=== PATIENT | male | born 1955 | race African-American/Black ===

== ENCOUNTER 2020-03-28 23:50 | Emergency (ER) | payer MEDICARE ==
[2020-03-29] MEDS ORDERED: methylPREDNISolone Sod Succ/PF 125 MG/2 ML VIAL ONE (00:11)
[2020-03-29] MEDS ORDERED: Magnesium 2 GM/50 ML BAG (IN WATER) ONE (00:11)
[2020-03-29] MEDS ORDERED: Albuterol Sulfate 2.5 mg/0.5 ml Neb ONE (03:18)
--- NOTE | 2020-03-29 07:56 | RAD ---
EXAM: XR Chest 1 View Portable PROVIDED CLINICAL HISTORY: Shortness of breath COMPARISON: None FINDINGS: Cardiac and mediastinal silhouette is within normal limits. Elevation of the right hemidiaphragm, mil d with blunting of the right costophrenic angle. No focal consolidation or left pleural fluid evident. No evidence for pneumothorax. Healed fracture deformities of right lateral ribs. IMPRESSION: Mild elevation of the right hemidiaphragm and blunting of the right costophrenic angle, chronicity un certain. Pleural fluid and/or pleural scarring is possible.
== END 2020-03-29 04:20 | disposition home or self-care (01) ==
LOC: ERS 23:50
DX: J44.1 Chronic obstructive pulmonary disease with (acute) exacerbation (principal); F41.9 Anxiety disorder, unspecified; F17.210 Nicotine dependence, cigarettes, uncomplicated
CPT/HCPCS: 71045; 96365; 96374; J2930; J3475; J7611; J7620

== ENCOUNTER 2020-06-06 10:43 | Observation (INO) | payer MEDICARE, OTHER ==
[2020-06-06 10:57] LABS: ALV-art Gradient 553.425 (0-20); Actual Bicarbonate (HCO3a) 26.7 mEq/L (22-28); Analyzer IN Cardio ER; Base Excess (BEa) 2.2 mEq/L (-2.0 to +3.0); CO2 Tension 41.1 mmHg (35.0-45.0); Calcium, Ionized (arterial) 1.18 mmol/L (1.12-1.30); Carboxyhemoglobin (COHb) 2.1 gm% (0.0-3.0); Hemoglobin (Hb) 12.7 g/dL (14.0-18.0); O2 Tension (PaO2), arterial 108.2 mmHg (> 80.0); Potassium - ABG Lab 4.04 mmol/L (3.70-5.30); Puncture Site LRA; pH, Arterial 7.43 (7.35-7.45)
[2020-06-06] MEDS ORDERED: Magnesium 2 GM/50 ML BAG (IN WATER) ONE (11:16)
[2020-06-06] MEDS ORDERED: methylPREDNISolone Sod Succ/PF 125 MG/2 ML VIAL ONE (11:16)
[2020-06-06 11:21] LABS: #Eosinphils 0.1 thou/uL (0.0-0.7); #Lymphocytes 1.2 thou/uL (1.20-3.40); #Monocytes 0.8 thou/uL (0.11-0.59); #Neutrophils 7.6 thou/uL (1.40-6.50); %Basophils 0.1 % (0.0-1.0); %Eosinophils 0.9 % (0.0-10.0); %Lymphocytes 12.7 % (21.0-51.0); %Monocytes 8.3 % (0.0-10.0); Hemoglobin 12.1 g/dL (14.0-18.0); Mean Corpuscular HGB CONC 33.4 g/dL (32.0-36.0); Mean Corpuscular Hemoglobin 28.6 pg (27.0-31.0); Mean Corpuscular Volume 85.8 fL (78.0-98.0); Mean Platelet Volume 7.6 fL (7.4-10.4); Platelet Count 224 thou/uL (130-400); RBC Distribution Width 14.7 % (11.5-14.5); Red Blood Cell (RBC) Count 4.23 mill/uL (4.70-6.10); White Blood Cell (WBC) Count 9.7 thou/uL (4.8-10.8)
--- NOTE | 2020-06-06 11:40 | RAD ---
PORTABLE CHEST 1 VIEW: DATE: 06/06/2020. TIME: 11:11 AM. HISTORY: COVID positive, difficulty breathing. COMPARISON: 04/25/2020. FINDINGS: The heart size is normal. The lungs are expanded with new bilateral patchy infiltrates. No pneumoth oraces or large effusions are seen. IMPRESSION: Findings are suspicious for COVID-19 pneumonia. POS: OFF
[2020-06-06 11:51] LABS: ALT (SGPT) 22 U/L (8-55); AST (SGOT) 20 U/L (5-34); Albumin 2.8 g/dL (3.4-4.8); Alkaline Phosphatase 91 U/L (40-110); Anion Gap 12 mmol/L (10-20); BUN (Urea Nitrogen) 6 mg/dL (8.4-25.7); Bilirubin, Total 0.7 mg/dL (0.2-1.2); Calc. Creatinine Clearance 0 mL/min (70-130); Calcium 8.2 mg/dL (7.8-10.44); Carbon Dioxide 27 mmol/L (23-31); Chloride 103 mmol/L (98-107); Estimated GFR-MDRD Greater than 90; Globulin 3.2 g/dL (2.4-3.5); Glucose 86 mg/dL (80-115); Potassium 4.2 mmol/L (3.5-5.1); Sodium 138 mmol/L (136-145)
[2020-06-06] MEDS ORDERED: Albuterol 200 PUFF (6.7GM INHALER) ONE (11:57)
[2020-06-06] MEDS ORDERED: Enoxaparin Sodium 60 MG/0.6 ML SYRINGE ONE (12:44)
[2020-06-06] MEDS ORDERED: Aspirin Chewable 81 MG TAB ONE (12:44)
[2020-06-06] MEDS ORDERED: Azithromycin 500 MG VIAL ONE (13:27)
[2020-06-06] MEDS ORDERED: cefTRIAXone\\ROCEPHIN 2 GM VIAL ONE (13:27)
[2020-06-06] MEDS ORDERED: cefTRIAXone\\ROCEPHIN 1 GM VIAL ONE (13:46)
[2020-06-06] MEDS ORDERED: Calcium Carbonate 500 MG ChewTAB PO PRN (14:10)
[2020-06-06] MEDS ORDERED: Guaifenesin DM 100-10/5 ML UDCUP PO PRN (14:10)
[2020-06-06] MEDS ORDERED: Acetaminophen 325 MG TAB PO PRN (14:10)
[2020-06-06] MEDS ORDERED: Ondansetron PF 4 MG/2 ML Vial IVP PRN (14:10)
[2020-06-06] MEDS ORDERED: Bisacodyl 10 MG SUPP PR PRN (14:10)
[2020-06-06] MEDS ORDERED: Senokot S 8.6-50 MG TAB PO PRN (14:10)
[2020-06-06 14:45] LABS: Troponin I 0.413 ng/mL (< 0.028)
--- NOTE | 2020-06-06 15:23 | HP ---
REASON FOR ADMISSION: COVID-19 pneumonia, acute respiratory failure with hypoxia. HISTORY OF PRESENTING ILLNESS: The patient gives history of having increasing shortness of breath this morning. He says he was diagnosed with COVID-19 pneumonia on May 27. He had gone for a routine cardiac catheterization with his primary animal sticker in [place] in [facility]. He does not recall the name of the hospital. As part of admission protocol, he had a COVID screen done, which came back positive. His cardiac catheterization was normal as far as he can remember and no stents were put in. The patient required nearly 3 L of oxygen by nasal cannula at the time of discharge. He says he has been in quarantine, but he had to come for his brother's , who a month back. This morning, he had gone out for a walk without his oxygen and his sister locked him out. He was off oxygen for nearly 2 hours and got severely short of breath. EMS was summoned and the patient was brought here. No complaints of chest pain or palpitation. He says he normally ambulates by himself. He lives in [facility] with his and has a primary care physician there. PAST MEDICAL AND SURGICAL HISTORY: COPD, tobacco abuse, hypertension. No previous surgical history. He says no major surgery on him. CURRENT MEDICATION: Metoprolol 25 mg twice daily. ALLERGIES: ALLERGIC TO PENICILLIN. PERSONAL HISTORY: The patient has cut down to 1 to 2 cigarettes from last 10 days, prior to which was smoking 2 packs a day. He apparently admitted to using cocaine to the ER physician, but has denied the same to me. He says he does not abuse alcohol. He lives with his in [facility]. FAMILY HISTORY: Both parents in their 50s. They had heart disease as far as he knows. CODE STATUS: Full. Power of mergers and acquisitions attorney is his . REVIEW OF SYSTEMS: CONSTITUTIONAL: Negative for weight loss or gain, ability to conduct usual activities. SKIN: Negative for rash, itching. EYES: Negative for double vision, pain. ENT/MOUTH: Negative for nose bleeding, neck stiffness, pain, tenderness. CARDIOVASCULAR: Negative for palpitations, dyspnea on exertion, orthopnea. RESPIRATORY: Negative for shortness of breath, wheezing, cough, hemoptysis, fever or night sweats. GASTROINTESTINAL: Negative for poor appetite, abdominal pain, heartburn, nausea, vomiting, constipation, or diarrhea. GENITOURINARY: Negative for urgency, frequency, dysuria, nocturia. MUSCULOSKELETAL: Negative for pain, swelling. NEUROLOGIC/PSYCHIATRIC: Negative for anxiety, depression. ALLERGY/IMMUNOLOGIC: Negative for skin rash, bleeding tendency. PHYSICAL EXAMINATION: GENERAL: The patient is a 65-year-old male who is currently not in any acute distress. VITAL SIGNS: Blood pressure 132/90, pulse 110 per minute, respiratory rate 18 per minute, temperature 98.2 degrees Fahrenheit, and saturating 96% on 3 L nasal cannula. NECK: Supple. No elevated JVD. HEENT: Eyes; extraocular muscles intact. Pupils reacting to light. Oral cavity, mucous membranes are dry. No exudates or congestion. CARDIOVASCULAR: S1, S2 heard. Tachycardic. No murmur. RESPIRATORY: Air entry 1+ bilateral. Scattered rales plus bilateral. Rhonchi plus bilateral. No wheezes. ABDOMEN: Soft. Bowel sounds heard. No tenderness, rigidity, or guarding. EXTREMITIES: No peripheral edema or calf tenderness. VASCULAR SYSTEM: Peripheral pulses 1+ bilateral. No ischemic ulcerations or gangrene. CENTRAL NERVOUS SYSTEM: No gross focal motor deficits noted. The patient is alert, awake, and oriented well. PSYCHIATRIC: The patient's mood is a bit anxious. Otherwise, no hallucinations or delusions. LABORATORY DATA: Chest x-ray done shows bilateral patchy infiltrates suspicious for COVID pneumonia. Troponin I 0.35. BUN 6, creatinine 0.69. LFTs are within normal limits. Albumin is 2.8. Blood gas done shows a pH of 7.43, pCO2 41, pO2 108. White count of 9, H and H 12 and 36, platelet count 224 with 78% neutrophils, MCV is 85. EKG done shows sinus tach at 117 beats per minute. There are signs of LVH seen. CLINICAL IMPRESSION AND PLAN: The patient will be under observation on telemetry for worsening shortness of breath with history of COVID-19 pneumonia from last 7 days. This morning, he was locked out of his house with no oxygen for nearly 2 hours, which led to current acute respiratory failure with hypoxic crisis. The patient has severe patchy infiltrates on both sites of his lungs with COVID-19 pneumonia. He also has indeterminate troponin. We will obtain echo with 2D Doppler to see if he has any underlying pericardial effusion in addition to possible myocarditis with COVID-19 pneumonia. We will empirically place him on doxycycline, dexamethasone 6 mg IV daily, DuoNeb q.6 hourly, aspirin 81 mg daily. We will continue his home dose of Lopressor and we will also add budesonide inhaler twice daily. We will add Lovenox full dose q.12 hourly in view of bilateral infiltrates with likely severe COVID-19 pneumonia and being on nearly 3 L of oxygen by nasal cannula. We will consult Dr. Mcwilliams for his opinion. The patient has had a CT angio ordered from the ER and we will follow up on the results of the same. Job ID: [id number]
[2020-06-06] MEDS ORDERED: Nicotine 21 MG PATCH TD SCH (17:00)
[2020-06-06] MEDS: HYDROcodone/Acetaminophen 5/325 mg Tablet PO PRN ×2 (17:03→23:31)
[2020-06-06 18:02] LABS: Critical Call Chem Troponin I RESULT DECREASING; Troponin I 0.376 ng/mL (< 0.028)
[2020-06-06] MEDS: Famotidine 20 MG TAB PO SCH (21:45)
[2020-06-06] MEDS: Albuterol 200 PUFF (6.7GM INHALER) INH SCH (21:45)
[2020-06-06] MEDS: Enoxaparin Sodium 60 MG/0.6 ML SYRINGE SC SCH (21:45)
[2020-06-06] MEDS: Doxycycline 100 MG CAP PO SCH (21:45)
[2020-06-06] MEDS: Metoprolol Tartrate 25 MG TAB PO SCH (21:45)
[2020-06-07] MEDS: Albuterol 200 PUFF (6.7GM INHALER) INH SCH ×3 (02:18→13:14)
[2020-06-07 05:09] LABS: #Lymphocytes 1.3 thou/uL (1.20-3.40); #Monocytes 0.5 thou/uL (0.11-0.59); %Basophils 0.4 % (0.0-1.0); %Eosinophils 0.3 % (0.0-10.0); %Lymphocytes 14.6 % (21.0-51.0); %Monocytes 5.9 % (0.0-10.0); %Neutrophils 78.8 % (42.0-75.0); Hemoglobin 11.4 g/dL (14.0-18.0); Mean Corpuscular HGB CONC 32.7 g/dL (32.0-36.0); Mean Corpuscular Hemoglobin 28.5 pg (27.0-31.0); Mean Corpuscular Volume 87.2 fL (78.0-98.0); Platelet Count 223 thou/uL (130-400); RBC Distribution Width 14.8 % (11.5-14.5); Red Blood Cell (RBC) Count 4.01 mill/uL (4.70-6.10); White Blood Cell (WBC) Count 8.8 thou/uL (4.8-10.8)
[2020-06-07 05:28] LABS: ALT (SGPT) 20 U/L (8-55); AST (SGOT) 18 U/L (5-34); Albumin 2.7 g/dL (3.4-4.8); Alkaline Phosphatase 87 U/L (40-110); Anion Gap 12 mmol/L (10-20); BUN (Urea Nitrogen) 12 mg/dL (8.4-25.7); Bilirubin, Total 0.3 mg/dL (0.2-1.2); Calc. Creatinine Clearance 72 mL/min (70-130); Calcium 8.3 mg/dL (7.8-10.44); Carbon Dioxide 25 mmol/L (23-31); Chloride 103 mmol/L (98-107); Estimated GFR-MDRD Greater than 90; Globulin 3.6 g/dL (2.4-3.5); Glucose 125 mg/dL (80-115); Potassium 4.6 mmol/L (3.5-5.1); Protein, Total 6.3 g/dL (5.8-8.1); Sodium 135 mmol/L (136-145)
[2020-06-07] MEDS: Doxycycline 100 MG CAP PO SCH (08:50)
[2020-06-07] MEDS: Metoprolol Tartrate 25 MG TAB PO SCH (08:50)
[2020-06-07] MEDS: Enoxaparin Sodium 60 MG/0.6 ML SYRINGE SC SCH (08:51)
[2020-06-07] MEDS: Famotidine 20 MG TAB PO SCH (08:51)
[2020-06-07] MEDS ORDERED: Dexamethasone 4 mg/ml Vial SLOW IVP SCH (09:00)
[2020-06-07] MEDS ORDERED: Aspirin Chewable 81 MG TAB PO SCH (09:00)
[2020-06-07] MEDS: HYDROcodone/Acetaminophen 5/325 mg Tablet PO PRN (09:16)
[2020-06-07 11:20] LABS: Hemoglobin 11.6 g/dL (14.0-18.0); Platelet Count 231 thou/uL (130-400)
--- NOTE | 2020-06-07 11:36 | PDOC.HOSPP ---
- Subjective Encounter Date: 06/07/20 Encounter Time: 11:00 Subjective: has sob, weakness+ is comfortable of nasal canula - Objective Vital Signs & Weight: Vital Signs (12 hours) Temp Pulse Resp BP Pulse Ox 06/07/20 09:03 98.3 F 103 H 24 H 134/86 92 L 06/07/20 04:50 97.8 F 96 24 H 131/85 98 06/07/20 01:54 96 06/06/20 23:58 96.3 F L 70 24 H 116/80 98 Weight Weight 128 lb 14.4 oz I&O: 06/06/20 06/07/20 06/08/20 06:59 06:59 06:59 Intake Total 600 Output Total 200 Balance 400 Result Diagrams: 06/07/20 10:48 06/07/20 04:50 Hospitalist ROS - Medication Medications: Active Medications Generic Name Dose Route Start Last Admin Trade Name Freq PRN Reason Stop Dose Admin Hydrocodone Bitart/Acetaminophen 1 tab 06/06/20 14:10 06/07/20 09:16 [place] 5/325 PO 1 tab Q4H PRN Administration Moderate Pain (4-6) Albuterol Sulfate 2 puff 06/06/20 19:00 06/07/20 08:51 Proventil Hfa INH 2 puff [id number] TORRIE Administration Aspirin 81 mg 06/07/20 09:00 06/07/20 08:50 Aspirin Chewable PO 81 mg DAILY TORRIE Administration Dexamethasone 6 mg 06/07/20 09:00 06/07/20 08:51 Decadron SLOW IVP 6 mg DAILY TORRIE Administration Doxycycline Hyclate 100 mg 06/06/20 21:00 06/07/20 08:50 Vibramycin PO 100 mg BID TORRIE Administration Enoxaparin Sodium 60 mg 06/06/20 21:00 06/07/20 08:51 Lovenox SC 60 mg 0900,2100 TORRIE Administration Famotidine 20 mg 06/06/20 21:00 06/07/20 08:51 Pepcid PO 20 mg BID TORRIE Administration Metoprolol Tartrate 25 mg 06/06/20 21:00 06/07/20 08:50 Lopressor PO 25 mg BID TORRIE Administration Nicotine 21 mg 06/06/20 17:00 06/06/20 17:03 Nicoderm Patch TD 21 mg Q24HR TORRIE Administration - Exam General Appearance: awake alert Eye: PERRL, anicteric sclera ENT: no oropharyngeal lesions, moist mucosa Neck: supple, no JVD Heart: RRR, no murmur Respiratory: no wheezes, rales, rhonchi Gastrointestinal: soft, non-tender, non-distended, normal bowel sounds Extremities: no cyanosis, no edema Neurological: cranial nerve grossly intact, no focal deficits Psychiatric: normal affect, A&O x 3 Hosp A/P (1) Pneumonia due to COVID-19 virus Code(s): U07.1 - COVID-19; J12.89 - OTHER VIRAL PNEUMONIA Status: Acute (2) Acute respiratory failure with hypoxia Code(s): J96.01 - ACUTE RESPIRATORY FAILURE WITH HYPOXIA Status: Acute (3) COPD (chronic obstructive pulmonary disease) Status: Chronic Qualifiers: COPD type: chronic bronchitis (4) Tobacco abuse Code(s): Z72.0 - TOBACCO USE Status: Chronic - Plan is on dexamethasone, nasal canula O2, lovenox full dose not sure if they will do an echo in view of his +ve covid status no chest pain or palp await opinion dc plan per advice continue inhaler, lopressor
[2020-06-07 11:43] LABS: Calc. Creatinine Clearance 79 mL/min (70-130); Estimated GFR-MDRD Greater than 90
[2020-06-07 12:40] VITALS: BP 131/80; TEMP 97.7
[2020-06-07 20:28] LABS: SARS-CoV-2 IgG Index 5.77 S/CO (< 1.40)
[2020-06-07 20:31] LABS: SARS-CoV-2 IgG Ab Reactive (NonReactive)
--- NOTE | 2020-06-08 06:12 | CON ---
DATE OF CONSULTATION: 06/07/2020 REASON: History of COVID pneumonia, superimposed on COPD with worsening dyspnea. HISTORY OF PRESENT ILLNESS: A 65-year-old history of chronic heavy smoking; COPD, on oxygen supplementation at home, who was admitted twice in [place], once in March and then in April for what he recalls are complications related to COVID pneumonia, superimposed on COPD. We do not have yet confirmation of this history, but the records have been requested. He was released in April from the hospital on oxygen supplementation and apparently, he came to visit family here due to I think one of his relatives passing away from an unrelated problem and on the way back, he found himself locked out of the house and did not have his inhalers or his oxygen and had to call EMS and be brought to the emergency room. On arrival, his temperature 98.2 and pulse 120, blood pressure 130/95, and O2 saturations were 96 after oxygen supplementation 3 L. He did not appear in distress. He had diffuse wheezing right and left side. Other elements of the examination were not particularly remarkable. Right now, he is awake, in no distress at all and is able to speak in full sentences and good recollection, orientation. He denies any headaches. No sore throat, odynophagia, or dysphagia. No chest pain. No back pain. A little bit of sputum production. He is slowly getting back his smell and taste in food. Abdomen is soft, not distended or tender. No ascites. No bladder distention. Voiding without difficulty. No joint symptoms. No neurological symptoms. PAST MEDICAL HISTORY: COPD, chronic smoking, hypertension, and reported recent episode of COVID diagnosed in [place]. SOCIAL HISTORY: Chronic smoker. Lives in [place]. Uses cocaine intermittently, mostly crack. Smokes half a pack a day. ALLERGIES: PENICILLIN WITH RASH, NOT VERY WELL DESCRIBED HISTORY OF ALLERGY. MEDICATIONS: At the moment: 1. Inhalers. 2. Aspirin. 3. Dulcolax. 4. Tums. 5. Decadron. 6. Vibramycin. 7. Lovenox. 8. Robitussin. PHYSICAL EXAMINATION: VITAL SIGNS: He has been afebrile since admission, blood pressure 130/86, pulse 103, respirations 20 to 24, O2 saturation on 2 to 3 L of nasal cannula is saturating anywhere from 92% to 96%. SKIN: Normal. There is no lymphadenopathy. HEENT: Ocular movements conjugate. Sclerae white. Pupils are equal. Conjunctivae normal. Oral cavity with numerous missing teeth, a lot of gum resorption. Some gingivitis. Oral mucosa normal. NECK: Supple. No jugular venous distention. LUNGS: With diminished breath sounds, but no obvious crackles or wheezing. HEART: S1, S2. Regular rate. No S3 or S4. ABDOMEN: Soft, not distended or tender. No ascites. No bladder distention. No organomegaly. No joint inflammatory activity. EXTREMITIES: Pulses 1+ in dorsalis pedis. Plantar responses are flexor. No edema. NEUROLOGIC: Oriented, follows commands, pleasant, good recollection. LABORATORY DATA: White cell count 9.7 then 8.8, hemoglobin 11.4, MCV 87, and platelets 223, 78% neutrophils, 14% lymphocytes, and D-dimer is 8.4. A pH 7.43, pCO2 of 41, PO2 108, and creatinine 0.82. Liver profile normal. Troponin 0.413 and 0.376. CRP of 7.65. Ferritin was normal. Chest x-ray with diffuse bilateral interstitial infiltrates. ASSESSMENT: Chronic obstructive pulmonary disease, chronic smoking, abnormal cardiac enzymes probably due to demand ischemia, COVID pneumonia reportedly diagnosed in [place]. The duration of illness is not very clear, but at least I would say 1-month-old infection. DISCUSSION: The patient most likely ended up in the hospital again because of not having access to his treatments and O2 supplementation at home, so the findings in the chest x-ray are most likely residual. In other words, he probably does not have any more viral replication in his body and this is just the aftermath of the infection. We will check his COVID antibody level and I think we can probably eventually taper off or discontinue Decadron and just switch him to his inhalers in preparation for discharge planning with his O2 supplementation at home. Job ID: [id number]
--- NOTE | 2020-06-10 11:58 | EKG ---
Test Reason : TACHYCARDIA Blood Pressure : / mmHG Vent. Rate : 117 BPM Atrial Rate : 117 BPM P-R Int : 130 ms QRS Dur : 078 ms QT Int : 302 ms P-R-T Axes : 073 011 050 degrees QTc Int : 421 ms Sinus tachycardia Possible Left atrial enlargement Left ventricular hypertrophy Nonspecific ST and T wave abnormality Abnormal ECG Confirmed by LARRY RANDALL DO ([id number]), desk editor SELENA QUINN ([id number] on 06/10/2020 11:57:41 AM Referred By: TONIA Confirmed By:LARRY RANDALL DO
--- NOTE | 2020-06-10 16:15 | DIS ---
DATE OF ADMISSION: 06/06/2020 DATE OF DISCHARGE: 06/07/2020 DISCHARGE DISPOSITION: Home. PRIMARY DISCHARGE DIAGNOSES: COVID-19 pneumonia with acute respiratory failure with hypoxia for almost a month or more, the exact duration is unclear. SECONDARY DISCHARGE DIAGNOSES: Chronic obstructive pulmonary disease, ongoing smoking, hypertension. PROCEDURES DONE DURING HOSPITALIZATION: Chest x-ray done showed bilateral patchy infiltrates. SARS-CoV IgG antibody is reactive. SARS-CoV-2 IgG antibody index is 5.77. BUN 12, creatinine 0.8, albumin 2.7. CRP 7.65, ferritin 267. D-dimer 8.4. H and H 12 and 36, platelet count 224. DISCHARGE PLAN: The patient to follow up with his primary care physician in 1 week. DISCHARGE MEDICATIONS: He needs to continue all his home medications including, 1. Metoprolol 25 mg twice daily. 2. Albuterol inhaler q.6 hourly p.r.n. 3. Aspirin 81 mg p.o. daily. BRIEF COURSE DURING HOSPITALIZATION: The patient initially came in with complaints of shortness of breath. He had apparently gone for a walk and his sister locked him out with his oxygen inside. He was without oxygen for nearly 2 hours and became short of breath. Initially, the patient revealed that he was diagnosed with COVID-19 pneumonia in the first week of May. The next day morning, he revealed that he has in fact been hospitalized twice for COVID and has been positive for COVID from March. He was given nebulizations and was placed back on nasal cannula oxygen during his brief stay here. Dr. Mcwilliams, infectious disease specialist was also consulted. He is ambulating and eating well prior to discharge. He was counseled to stop smoking and be compliant with his oxygen and follow up with his primary care physician in the [facility]. He in fact had come to the area here locally due to demise of his brother a month back and likely . He is hemodynamically stable. I have seen and examined the patient on the day of discharge. Job ID: [id number]
== END 2020-06-07 16:50 | disposition home or self-care (01) ==
LOC: ERS 10:43 → 2SW 14:10
PROVIDERS: ADMIT Internal Medicine; ATTEND Internal Medicine
DX: U07.1 COVID-19 (principal); J12.89 Other viral pneumonia; J96.01 Acute respiratory failure with hypoxia; J44.9 Chronic obstructive pulmonary disease, unspecified; I10 Essential (primary) hypertension; F17.210 Nicotine dependence, cigarettes, uncomplicated; Z79.82 Long term (current) use of aspirin; Z79.899 Other long term (current) drug therapy; Z88.0 Allergy status to penicillin
CPT/HCPCS: 71045; 80053 ×2; 82553; 82565; 82728; 82805; 84484 ×2; 85014; 85018; 85025 ×2; 85049; 85379; 86140; 86769; 93005; 94640; 94664; 96361; 96365; 96366; 96367; 96368; 96372 ×3; 96375 ×2; 99285; G0378 ×3; 36415; J0456; J0696; J1100; J1650; J2930; J3475

== ENCOUNTER 2021-09-20 13:32 | Emergency (ER) | payer MEDICARE ==
[2021-09-20] MEDS ORDERED: methylPREDNISolone Sod Succ/PF 125 MG/2 ML VIAL ONE (14:09)
[2021-09-20 14:31] LABS: #Eosinphils 0.1 thou/uL (0.0-0.7); #Lymphocytes 1.8 thou/uL (1.20-3.40); #Monocytes 0.6 thou/uL (0.11-0.59); #Neutrophils 4.8 thou/uL (1.40-6.50); %Basophils 0.6 % (0.0-1.0); %Eosinophils 1.2 % (0.0-10.0); %Lymphocytes 24.4 % (21.0-51.0); %Monocytes 8.6 % (0.0-10.0); %Neutrophils 65.2 % (42.0-75.0); Hemoglobin 13.6 g/dL (14.0-18.0); Mean Corpuscular HGB CONC 33.6 g/dL (32.0-36.0); Mean Corpuscular Hemoglobin 29.3 pg (27.0-31.0); Mean Corpuscular Volume 87.2 fL (78.0-98.0); Mean Platelet Volume 9.5 fL (7.4-10.4); Platelet Count 132 thou/uL (130-400); RBC Distribution Width 14.3 % (11.5-14.5); Red Blood Cell (RBC) Count 4.65 mill/uL (4.70-6.10); White Blood Cell (WBC) Count 7.3 thou/uL (4.8-10.8)
[2021-09-20] MEDS ORDERED: predniSONE 20 MG TAB ONE (14:41)
[2021-09-20 14:51] LABS: ALT (SGPT) 16 U/L (8-55); AST (SGOT) 21 U/L (5-34); Albumin 3.7 g/dL (3.4-4.8); Alkaline Phosphatase 62 U/L (40-110); Anion Gap 13 mmol/L (10-20); BUN (Urea Nitrogen) Less than 4 mg/dL (8.4-25.7); Bilirubin, Total 0.5 mg/dL (0.2-1.2); Calc. Creatinine Clearance 0 mL/min (70-130); Calcium 9.1 mg/dL (7.8-10.44); Carbon Dioxide 21 mmol/L (23-31); Chloride 108 mmol/L (98-107); Glucose 90 mg/dL (80-115); Lipase 14 U/L (8-78); Potassium 3.4 mmol/L (3.5-5.1); Protein, Total 6.7 g/dL (5.8-8.1); Sodium 139 mmol/L (136-145)
== END 2021-09-20 16:52 | disposition home or self-care (01) ==
LOC: ERS 13:32
DX: J44.1 Chronic obstructive pulmonary disease with (acute) exacerbation (principal); I10 Essential (primary) hypertension; F17.210 Nicotine dependence, cigarettes, uncomplicated; Z79.899 Other long term (current) drug therapy
CPT/HCPCS: 36415; 71045; 80053; 83690; 84484; 85025; 93005; 94640; J2930; J7512; J7620

== ENCOUNTER 2022-10-27 06:55 | Inpatient (IN) | payer MEDICARE, MEDICAID ==
[2022-10-27 07:57] LABS: #Basophils 0.1 thou/uL (0.0-0.2); #Lymphocytes 3.4 thou/uL (1.20-3.40); #Monocytes 0.8 thou/uL (0.11-0.59); #Neutrophils 4.9 thou/uL (1.40-6.50); %Basophils 0.8 % (0.0-1.0); %Eosinophils 0.4 % (0.0-10.0); %Lymphocytes 36.9 % (21.0-51.0); %Monocytes 8.9 % (0.0-10.0); %Neutrophils 52.9 % (42.0-75.0); Hemoglobin 11.9 g/dL (14.0-18.0); Mean Corpuscular HGB CONC 31.9 g/dL (32.0-36.0); Mean Corpuscular Hemoglobin 25.4 pg (27.0-31.0); Mean Corpuscular Volume 79.5 fl (78.0-98.0); Platelet Count 244 10x3/uL (130-400); RBC Distribution Width 19.8 % (11.5-14.5); White Blood Cell (WBC) Count 9.3 10x3/uL (4.8-10.8)
[2022-10-27 08:12] LABS: Actual Bicarbonate (HCO3v) 33 mEq/L (22-28); Calcium, Ionized (venous) 1.08 mmol/L (1.16-1.32); Chloride (VBG) 105 mmol/L (98-106); Hemoglobin (Hb) 11.4 g/dL (12.6-17.4); Potassium (VBG) 3.76 mmol/L (3.70-5.30); Sodium 139.9 mmol/L (133-146); pH (venous) 7.37 (7.32-7.43)
[2022-10-27 08:18] LABS: ALT (SGPT) 13 U/L (8-55); AST (SGOT) 21 U/L (5-34); Albumin 3.7 g/dL (3.4-4.8); Alkaline Phosphatase 57 U/L (40-110); Anion Gap 12 mmol/L (10-20); BUN (Urea Nitrogen) 5 mg/dL (8.4-25.7); Bilirubin, Total 0.6 mg/dL (0.2-1.2); Calc. Creatinine Clearance 0 mL/min (70-130); Calcium 9.5 mg/dL (7.8-10.44); Carbon Dioxide 32 mmol/L (23-31); Chloride 104 mmol/L (98-107); Estimated GFR 81; Globulin 3.7 g/dL (2.4-3.5); Glucose 90 mg/dL (80-115); Magnesium 1.7 mg/dL (1.6-2.6); Protein, Total 7.4 g/dL (5.8-8.1); Sodium 144 mmol/L (136-145)
[2022-10-27 08:21] LABS: MDiff Complete? YES; Platelet Morphology Comment Appears Adequate; Polychromasia SLIGHT = 2-3 cells (100X) (0-2/hpf); Schistocytes SLIGHT = 2-5 cells (100X) (0-1/hpf); Target Cells SLIGHT = 2-5 cells (100X) (0-1/hpf)
[2022-10-27 08:39] LABS: CKMB 1.5 ng/mL (0-6.6)
[2022-10-27] MEDS ORDERED: Aspirin 325 MG TAB ONE (09:28)
[2022-10-27] MEDS ORDERED: Diazepam 2 MG TAB PO SCH (09:30)
[2022-10-27] MEDS ORDERED: Ondansetron PF 4 MG/2 ML Vial IVP PRN (09:39)
[2022-10-27] MEDS ORDERED: Acetaminophen 325 MG TAB PO PRN (09:39)
[2022-10-27] MEDS ORDERED: methylPREDNISolone Sod Succ/PF 40 MG in Sodium Chloride 0.9% 250 ML 250 ML IVPB SCH (09:45)
[2022-10-27] MEDS ORDERED: Morphine 4 MG/ML VIAL ONE (09:53)
[2022-10-27] MEDS ORDERED: Morphine 4 MG/ML VIAL SLOW IVP PRN (09:56)
[2022-10-27 11:04] LABS: Troponin I 0.017 ng/mL (< 0.028)
[2022-10-27] MEDS ORDERED: Iopamidol-370 76% 500 ML 1 ML ONE (11:09)
[2022-10-27 12:04] VITALS: BMI 22.5
[2022-10-27] MEDS ORDERED: ALPRAZolam 0.25 MG TAB PO SCH (12:45)
[2022-10-27] MEDS: methylPREDNISolone Sod Succ 40 MG VIAL IVP SCH ×2 (13:00→21:27)
[2022-10-27 14:11] LABS: Troponin I 0.015 ng/mL (< 0.028)
[2022-10-27] MEDS ORDERED: Promethazine 25 MG TAB PO PRN (15:39)
[2022-10-27] MEDS ORDERED: hydrOXYzine 25 MG TAB PO PRN (16:00)
[2022-10-27] MEDS: Lorazepam 1 MG TAB PO PRN (16:58)
[2022-10-27] MEDS: Morphine 10 MG/0.5 ML ORAL SYRINGE PO PRN ×2 (17:13→21:24)
[2022-10-27] MEDS ORDERED: Albuterol Sulfate 1.25 MG/3 ML NEB ONE (18:26)
[2022-10-27] MEDS: Mometasone 100 MCG/Formoterol 5 MCG 120 PUFF INHALER INH SCH (18:49)
[2022-10-27] MEDS ORDERED: Nicotine 21 MG PATCH TD PRN (20:56)
[2022-10-27] MEDS: Metoprolol Tartrate 25 MG TAB PO SCH (21:26)
[2022-10-27] MEDS: Famotidine 20 MG TAB PO SCH (21:26)
[2022-10-27] MEDS: Doxycycline 100 MG CAP PO SCH (21:26)
[2022-10-28] MEDS ORDERED: Ipratropium Bromide 2.5 ml Neb ONE (00:05)
[2022-10-28 05:21] LABS: Anion Gap 10 mmol/L (10-20); BUN (Urea Nitrogen) 10 mg/dL (8.4-25.7); Calc. Creatinine Clearance 76 mL/min (70-130); Calcium 8.8 mg/dL (7.8-10.44); Carbon Dioxide 29 mmol/L (23-31); Chloride 102 mmol/L (98-107); Estimated GFR 94; Glucose 122 mg/dL (80-115); Potassium 4.6 mmol/L (3.5-5.1); Sodium 136 mmol/L (136-145)
[2022-10-28] MEDS: methylPREDNISolone Sod Succ 40 MG VIAL IVP SCH ×3 (05:41→21:00)
[2022-10-28 05:58] LABS: #Lymphocytes 1.8 thou/uL (1.20-3.40); #Monocytes 0.4 thou/uL (0.11-0.59); #Neutrophils 9.4 thou/uL (1.40-6.50); %Basophils 0.2 % (0.0-1.0); %Eosinophils 0.4 % (0.0-10.0); %Lymphocytes 15.2 % (21.0-51.0); %Monocytes 3.5 % (0.0-10.0); %Neutrophils 80.7 % (42.0-75.0); Hemoglobin 11.1 g/dL (14.0-18.0); Mean Corpuscular Hemoglobin 25.5 pg (27.0-31.0); Mean Corpuscular Volume 79.8 fl (78.0-98.0); Mean Platelet Volume 7.1 fL (7.4-10.4); Platelet Count 240 10x3/uL (130-400); RBC Distribution Width 19.8 % (11.5-14.5); Red Blood Cell (RBC) Count 4.34 mill/uL (4.70-6.10); White Blood Cell (WBC) Count 11.6 10x3/uL (4.8-10.8)
[2022-10-28] MEDS: Mometasone 100 MCG/Formoterol 5 MCG 120 PUFF INHALER INH SCH ×2 (08:22→18:56)
[2022-10-28] MEDS: Enoxaparin Sodium 40 MG/0.4 ML SYRINGE SC SCH (08:57)
[2022-10-28] MEDS: Metoprolol Tartrate 25 MG TAB PO SCH ×2 (08:57→21:00)
[2022-10-28] MEDS: Senokot S 8.6-50 MG TAB PO SCH (08:57)
[2022-10-28] MEDS: Doxycycline 100 MG CAP PO SCH ×2 (08:57→21:01)
[2022-10-28] MEDS: Aspirin Chewable 81 MG TAB PO SCH (08:57)
[2022-10-28] MEDS: Famotidine 20 MG TAB PO SCH (08:57)
[2022-10-28] MEDS ORDERED: Albuterol Sulfate 2.5 mg/0.5 ml Neb NEB PRN (11:57)
[2022-10-28] MEDS ORDERED: Albuterol 200 PUFF (6.7GM INHALER) INH PRN (12:05)
[2022-10-28] MEDS ORDERED: Albuterol Sulfate 1.25 MG/3 ML NEB NEB SCH (12:15)
[2022-10-28] MEDS: Ipratropium Bromide 2.5 ml Neb NEB SCH ×4 (12:37→22:47)
[2022-10-28] MEDS ORDERED: Ipratropium Bromide 2.5 ml Neb NEB SCH (13:00)
[2022-10-28] MEDS: Albuterol Sulfate 1.25 MG/3 ML NEB NEB SCH ×3 (14:30→22:46)
[2022-10-28] MEDS: Lorazepam 1 MG TAB PO PRN (14:45)
[2022-10-28] MEDS ORDERED: Magnesium 2 GM/50 ML(in water) 2 GM in Premix Bag 1 BAG IVPB SCH (17:00)
[2022-10-28] MEDS: Morphine 10 MG/0.5 ML ORAL SYRINGE PO PRN (17:54)
[2022-10-29] MEDS: Morphine 10 MG/0.5 ML ORAL SYRINGE PO PRN ×2 (00:04→06:34)
[2022-10-29] MEDS: Ipratropium Bromide 2.5 ml Neb NEB SCH ×3 (03:01→11:21)
[2022-10-29] MEDS: Albuterol Sulfate 1.25 MG/3 ML NEB NEB SCH ×3 (03:01→11:21)
[2022-10-29] MEDS: Lorazepam 0.5 MG TAB PO PRN ×2 (04:12→09:00)
[2022-10-29 05:28] LABS: Anion Gap 13 mmol/L (10-20); BUN (Urea Nitrogen) 14 mg/dL (8.4-25.7); Calc. Creatinine Clearance 76 mL/min (70-130); Calcium 9.3 mg/dL (7.8-10.44); Carbon Dioxide 27 mmol/L (23-31); Chloride 101 mmol/L (98-107); Estimated GFR 94; Glucose 96 mg/dL (80-115); Potassium 4.3 mmol/L (3.5-5.1); Sodium 137 mmol/L (136-145)
[2022-10-29] MEDS: methylPREDNISolone Sod Succ 40 MG VIAL IVP SCH (06:30)
[2022-10-29] MEDS: Mometasone 100 MCG/Formoterol 5 MCG 120 PUFF INHALER INH SCH (08:05)
[2022-10-29] MEDS: Aspirin Chewable 81 MG TAB PO SCH (08:56)
[2022-10-29] MEDS: Enoxaparin Sodium 40 MG/0.4 ML SYRINGE SC SCH (08:56)
[2022-10-29] MEDS: Senokot S 8.6-50 MG TAB PO SCH (08:56)
[2022-10-29] MEDS: Metoprolol Tartrate 25 MG TAB PO SCH (08:57)
[2022-10-29] MEDS: Doxycycline 100 MG CAP PO SCH (08:57)
[2022-10-29 12:00] VITALS: BP 136/84; TEMP 97.5
== END 2022-10-29 13:45 | disposition hospice, home (50) | DRG 191 ==
LOC: ERS 06:55 → SUATTDRO 06:55 → 2NO 09:34 → OBSVTOIN 10-29 11:55
PROVIDERS: ADMIT Internal Medicine; ATTEND Internal Medicine
DX: J44.1 Chronic obstructive pulmonary disease with (acute) exacerbation (principal); J96.11 Chronic respiratory failure with hypoxia; F17.210 Nicotine dependence, cigarettes, uncomplicated; Z51.5 Encounter for palliative care; D64.9 Anemia, unspecified; E83.42 Hypomagnesemia; I50.9 Heart failure, unspecified; I11.0 Hypertensive heart disease with heart failure; Z20.822 Contact with and (suspected) exposure to COVID-19; Z95.0 Presence of cardiac pacemaker; Z88.0 Allergy status to penicillin; Z79.51 Long term (current) use of inhaled steroids; Z79.82 Long term (current) use of aspirin; Z79.899 Other long term (current) drug therapy; Z99.81 Dependence on supplemental oxygen
CPT/HCPCS: 36415; 36416; 71045; 71275; 80048; 80053; 82553; 82805; 83735; 83880; 84484; 85025; 85379; 87804; 93005; 94640; 96374; J1650; J2270; J2920; J3475; J7620; Q9967; U0003; U0005

== ENCOUNTER 2023-09-16 03:37 | Inpatient (IN) | payer MEDICARE, MEDICAID ==
[2023-09-16 04:43] LABS: #Monocytes 0.3 thou/uL (0.11-0.59); #Neutrophils 6.3 thou/uL (1.40-6.50); %Basophils 0.5 % (0.0-1.0); %Eosinophils 0.1 % (0.0-10.0); %Lymphocytes 14.2 % (21.0-51.0); %Monocytes 4.4 % (0.0-10.0); %Neutrophils 80.5 % (42.0-75.0); Hematocrit 46.7 % (42.0-52.0); Hemoglobin 15.2 g/dL (14.0-18.0); Mean Corpuscular HGB CONC 32.5 g/dL (32.0-36.0); Mean Corpuscular Hemoglobin 25.9 pg (27.0-31.0); Mean Corpuscular Volume 79.6 fl (78.0-98.0); Mean Platelet Volume 10.5 fL (7.4-10.4); Platelet Count 189 10x3/uL (130-400); RBC Distribution Width 15.9 % (11.5-14.5); Red Blood Cell (RBC) Count 5.87 mill/uL (4.70-6.10); White Blood Cell (WBC) Count 7.8 10x3/uL (4.8-10.8)
[2023-09-16 05:02] LABS: ALT (SGPT) 9 U/L (8-55); AST (SGOT) 15 U/L (5-34); Albumin 4.7 g/dL (3.4-4.8); Alkaline Phosphatase 62 U/L (40-110); Anion Gap 13 mmol/L (10-20); BUN (Urea Nitrogen) 8 mg/dL (8.4-25.7); Bilirubin, Total 0.7 mg/dL (0.2-1.2); Calc. Creatinine Clearance 0 mL/min (70-130); Calcium 9.8 mg/dL (7.8-10.44); Carbon Dioxide 28 mmol/L (23-31); Chloride 103 mmol/L (98-107); Estimated GFR 76; Globulin 3.6 g/dL (2.4-3.5); Glucose 118 mg/dL (80-115); Lipase 6 U/L (8-78); Potassium 4.1 mmol/L (3.5-5.1); Protein, Total 8.3 g/dL (5.8-8.1); Sodium 140 mmol/L (136-145)
[2023-09-16 05:04] LABS: Bacteria/HPF None Seen HPF (None Seen); Bilirubin Negative (Negative); Blood, Urine Negative (Negative); CAUTI Indications for Culture Pelvic or flank pain; Clarity Clear (Clear); Glucose, Urine (Dipstick) Normal (Negative); Ketone, Urine Trace mg/dL (Negative); Leukocyte Negative Leu/uL (Negative); Nitrite Negative (Negative); Protein, Urine (Dipstick) 10 mg/dL (Neg-Trace); RBC/HPF None Seen HPF (0-3); Specific Gravity, Urine 1.011 (1.002-1.036); Squamous Epithelial None Seen HPF (0-3); Urine Culture Reflex No No; Urobilinogen Normal mg/dL (Less than 2); WBC/HPF 0-3 HPF (0-3); pH, Urine 6.5 (5.0-9.0)
[2023-09-16] MEDS ORDERED: Morphine 4 MG/ML VIAL ONE (05:04)
[2023-09-16] MEDS ORDERED: Ondansetron PF 4 MG/2 ML Vial ONE (05:05)
[2023-09-16] MEDS ORDERED: Ondansetron ODT 4 MG TAB SL PRN (06:45)
[2023-09-16] MEDS ORDERED: Acetaminophen 325 MG TAB PO PRN (06:45)
[2023-09-16] MEDS ORDERED: Ondansetron PF 4 MG/2 ML Vial IVP PRN (06:45)
[2023-09-16] MEDS ORDERED: Morphine 4 MG/ML VIAL SLOW IVP PRN (07:35)
[2023-09-16] MEDS ORDERED: Hyoscyamine SL 0.125 MG TAB PO PRN (07:41)
[2023-09-16] MEDS ORDERED: Albuterol 200 PUFF (6.7GM INHALER) INH PRN (07:41)
[2023-09-16] MEDS ORDERED: Lorazepam 0.5 MG TAB PO PRN (07:41)
[2023-09-16] MEDS ORDERED: Benzonatate 100 MG CAP PO PRN (07:41)
[2023-09-16] MEDS ORDERED: Lorazepam 2 MG/ML VIAL SLOW IVP PRN (07:42)
[2023-09-16] MEDS ORDERED: QUEtiapine 25 MG TAB PO SCH ×2 (09:00→21:00)
[2023-09-16] MEDS ORDERED: Non-Formulary Item 1 EACH (Ipratropium 200 PUFF Inh) INH SCH (09:00)
[2023-09-16] MEDS: Sodium Chloride 0.9% 1,000 ML IV SCH ×2 (09:19→21:34)
[2023-09-16] MEDS: Nicotine 14 MG PATCH TD SCH (09:20)
[2023-09-16 09:26] VITALS: BMI 18.4
[2023-09-16] MEDS: Ipratropium 200 Puff Oral Inhaler INH SCH ×4 (10:53→19:03)
[2023-09-16] MEDS ORDERED: Iopamidol 370 76% 100 ML VIAL ONE (13:42)
[2023-09-16] MEDS ORDERED: MD-Gastroview 120 ML BOT ONE (14:04)
[2023-09-16] MEDS: Mometasone 100 MCG/Formoterol 5 MCG 120 PUFF INHALER INH SCH (19:03)
[2023-09-17 06:32] LABS: ALT (SGPT) 10 U/L (8-55); AST (SGOT) 15 U/L (5-34); Albumin 3.7 g/dL (3.4-4.8); Alkaline Phosphatase 56 U/L (40-110); Anion Gap 12 mmol/L (10-20); BUN (Urea Nitrogen) 6 mg/dL (8.4-25.7); Bilirubin, Total 0.8 mg/dL (0.2-1.2); Calc. Creatinine Clearance 63 mL/min (70-130); Calcium 8.8 mg/dL (7.8-10.44); Carbon Dioxide 27 mmol/L (23-31); Chloride 106 mmol/L (98-107); Estimated GFR 88; Globulin 3.3 g/dL (2.4-3.5); Glucose 77 mg/dL (80-115); Sodium 141 mmol/L (136-145)
[2023-09-17] MEDS: Ipratropium 200 Puff Oral Inhaler INH SCH ×2 (06:42→10:28)
[2023-09-17] MEDS: Mometasone 100 MCG/Formoterol 5 MCG 120 PUFF INHALER INH SCH (06:42)
[2023-09-17] MEDS: Nicotine 14 MG PATCH TD SCH (08:57)
[2023-09-17 12:58] VITALS: BP 141/88; TEMP 98
[2023-09-17] MEDS: Sodium Chloride 0.9% 1,000 ML IV SCH (12:59)
== END 2023-09-17 13:11 | DRG 392 ==
LOC: SUATTDRO 03:37 → ERS 03:37 → T4-B 06:36
PROVIDERS: ADMIT Student in an Organized Health Care Education/Training Program; ATTEND Nurse Practitioner Acute Care
PROC: 0D9670Z Drainage of Stomach with Drainage Device, Via Natural or Artificial Opening (ICD-10-PCS; principal; 2023-09-16)
DX: K52.9 Noninfective gastroenteritis and colitis, unspecified (principal); J96.11 Chronic respiratory failure with hypoxia; J44.9 Chronic obstructive pulmonary disease, unspecified; F41.9 Anxiety disorder, unspecified; I11.0 Hypertensive heart disease with heart failure; I50.9 Heart failure, unspecified; F17.210 Nicotine dependence, cigarettes, uncomplicated; Z88.0 Allergy status to penicillin; Z99.81 Dependence on supplemental oxygen; Z95.0 Presence of cardiac pacemaker; Z79.51 Long term (current) use of inhaled steroids; Z79.899 Other long term (current) drug therapy
CPT/HCPCS: 36415; 74177; 74250; 80053; 81001; 83605; 83690; 85025; 87040; 94640; 96374; 96375; J2270; J2405; J7050; J7611; Q9963; Q9967